=== PATIENT | female | born 1975 | race Caucasian/White ===

== ENCOUNTER 2016-06-19 15:53 | Emergency (ER) | payer BC, OTHER ==
[2016-06-19 17:01] VITALS: BP 120/75
--- NOTE | 2016-06-19 17:09 | ED ---
Skin Complaint - HPI Summary HPI Summary: Patient is a current employee of [employer] and arrives to the ED after patient scratched her forearms bilaterally. She is sent here by her department to get cleared for return to work. Discussed with patient the inability to transfer infections from one person to the next through scratches, but patient still has the potential become infected. Patient given return precautions. - History of Current Complaint Chief Complaint: EDExposureBodyFluid Time Seen by Provider: 06/19/16 16:02 Stated Complaint: ARM INJURY-WC Hx Obtained From: Patient Hx Last Menstrual Period: current Onset/Duration: Started Minutes Ago Skin Exposure Onset/Duration: Minutes Ago Timing: Constant Onset Severity: Mild Current Severity: Mild Pain Intensity: 0 Pain Scale Used: 0-10 Numeric Skin Location: Arm - bilateral Aggravating Symptom(s): Nothing Alleviating Symptom(s): Nothing Associated Signs & Symptoms: Negative - Allergy/Home Medications Allergies/Adverse Reactions: Allergies Allergy/AdvReac Type Severity Reaction Status Date / Time No Known Allergies Allergy Verified 06/19/16 15:56 PMH/Surg Hx/FS Hx/Imm Hx Previously Healthy: Yes Endocrine/Hematology History: Denies: Hx Diabetes Cardiovascular History: Denies: Hx Hypertension, Hx Pacemaker/ICD Respiratory History: Denies: Hx Asthma Sensory History: Denies: Hx Hearing Aid Psychiatric History: Reports: Hx Panic Disorder - Cancer History Hx Chemotherapy: No Hx Radiation Therapy: No - Surgical History Surgery Procedure, Year, and Place: Cholecystectomy, appendectomy Infectious Disease History: No Infectious Disease History: Denies: Traveled Outside the [place] in Last 30 Days - Family History Known Family History: Negative: Diabetes - Social History Occupation: Employed Full-time Lives: With Family Alcohol Use: Weekly Hx Substance Use: No Substance Use Type: Reports: None Smoking Status (MU): Light Every Day Tobacco Smoker Review of Systems Constitutional: Negative Eyes: Negative Cardiovascular: Negative Respiratory: Negative Musculoskeletal: Negative Skin: Other - 5 small 1-2cm scratches over forearms bilaterally without bleeding , drainage or signs of infection. Psychological: Normal All Other Systems Reviewed And Are Negative: Yes Physical Exam Triage Information Reviewed: Yes Vital Signs On Initial Exam: Initial Vitals Temp Pulse Resp BP Pulse Ox 99.1 F 81 16 123/67 98 06/19/16 15:56 06/19/16 15:56 06/19/16 15:56 06/19/16 15:56 06/19/16 15:56 Vital Signs Reviewed: Yes Appearance: Positive: Well-Appearing, No Pain Distress, Well-Nourished Skin: Positive: Warm, Skin Color Reflects Adequate Perfusion, Other - 5 - 1-2cm scratches over forearms bilaterally, superficial abrasion Head/Face: Positive: Normal Head/Face Inspection Eyes: Positive: Normal, EOMI, JUWAN Neck: Positive: Supple, No Lymphadenopathy Respiratory/Lung Sounds: Positive: Clear to Auscultation, Breath Sounds Present Cardiovascular: Positive: Normal Abdomen Description: Positive: Nontender Musculoskeletal: Positive: Normal, Strength/ROM Intact Neurological: Positive: Normal, Sensory/Motor Intact, Speech Normal Psychiatric: Positive: Normal AVPU Assessment: Alert - [place] Coma Scale Coma Scale Total: 15 Diagnostics - Vital Signs Vital Signs Temp Pulse Resp BP Pulse Ox 06/19/16 17:00 98.2 F 72 18 120/75 06/19/16 15:56 99.1 F 81 16 123/67 98 - Laboratory Lab Statement: Any lab studies that have been ordered have been reviewed, and results considered in the medical decision making process. Course/Dx - Course Course Of Treatment: Patients wounds were cleaned with normal saline. antibiotic ointment and bandage applied to both forearms bilaterally. no signs of infection. patient feeling well. discharged home with return to work. no testing required d/t type of injury of human scratch. - Differential Diagnoses - Skin Complaint Differential Diagnoses: Cellulitis, Impetigo, Urticaria, Other - abrasion - Diagnoses Provider Diagnoses: Scratch of forearm Discharge - Discharge Plan Condition: Stable Disposition: HOME Patient Education Materials: Abrasion (ED) Referrals: Christiana Cazares OCCUPATIONAL NURSE [Primary Care Provider] - Additional Instructions: may take the bandages off this evening. Able to get wet with soap and water. If you develop signs of infection: redness, warmth, red streaking from the area , drainage or fever - come back to ED.
== END 2016-06-19 17:00 | disposition home or self-care (01) ==
LOC: ED 15:53
DX: S50.812A Abrasion of left forearm, initial encounter (principal); S50.811A Abrasion of right forearm, initial encounter; W50.4XXA Accidental scratch by another person, initial encounter; Y93.89 Activity, other specified; Y92.230 Patient room in hospital as the place of occurrence of the external cause; F17.210 Nicotine dependence, cigarettes, uncomplicated
CPT/HCPCS: 99282